=== PATIENT | female | born 1990 | race Caucasian/White ===

== ENCOUNTER 2016-07-10 14:30 | Emergency (ER) | payer OTHER ==
[~2016-07-10] VITALS: Wt 63.0 kg
--- NOTE | 2016-07-10 15:53 | RADRPT ---
PROCEDURE: XR Chest 1 View. CLINICAL INDICATION: Cough TECHNIQUE: AP view of the chest were obtained. COMPARISON: None. FINDINGS: The cardiomediastinal silhouette is within normal limits. The lungs are hyperexpanded. Scattered at electasis is noted in the bilateral lower lobes. No consolidations are identified. No pneumothorax is seen. Osseous structures are intact. IMPRESSION: Hyperexpanded lungs. Scattered atelectasis in the bilateral lower lobes. RPTAT: AA .Enrique Dinero MD, Date Time Electronically viewed and signed by .Enrique Dinero MD, on 07/10/2016 15:53 .P/
[2016-07-10] MEDS ORDERED: IBUPROFEN 800 MG TAB PO ONE (16:00)
[2016-07-10 16:02] VITALS: BP 123/57; PULSE 90; RESP 20; TEMP 98.7
[2016-07-10] MEDS ORDERED: BENZ100C70 PO (16:06)
[2016-07-10] MEDS ORDERED: D-ME473S18 PO (16:06)
--- NOTE | 2016-07-10 17:18 | ERD ---
DATE OF SERVICE: HISTORY OF PRESENT ILLNESS: The patient is a 26-year-old female complaining of cough and congestion that started last night. She states that she has some deep chest pain. She has a runny nose and h as had a sore throat. No fever, no body aches. She states she does have some pleuritic pain with d eep breaths. She has had no recent travel, no recent surgeries. She does not smoke. She has no OC P use and has no history of clotting disorders or cancer. PAST MEDICAL HISTORY: Denies medical problems. ALLERGIES: PENICILLINS. SOCIAL HISTORY: Denies. REVIEW OF SYSTEMS: A 12-point review of systems was done. Refer to HPI for positives, all other sy stems negative. PHYSICAL EXAMINATION VITAL SIGNS: Temperature is 99.9, pulse 102, blood pressure is 119/84, respiratory rate 22, O2 sat 97% on room air. Pain intensity 9/10. GENERAL: The patient is well-appearing, well-nourished, no acute distress. HEART: Regular rate and rhythm. No murmurs, clicks, rubs, or gallops. No S3 or S4. CHEST: Clear to auscultation bilaterally. There are no rales, wheezes, or rhonchi. HEENT: Atraumatic. Conjunctivae are pink. Pupils equal, round, and reactive to light. There is n o scleral icterus. Tympanic membranes clear bilaterally. Oropharynx clear. No nystagmus or photop hobia. ABDOMEN: Soft, nontender and nondistended. Good bowel sounds. No rebound or guarding. No gross p eritonitis. No gross organomegaly or masses. No Tang sign or McBurney point tenderness. SKIN: There is no apparent rash or petechiae. The skin is warm and dry. EMERGENCY ROOM COURSE: The patient had an EKG done in the ER. The patient's EKG showed a ventricul ar rate of 119, sinus tachycardia with no ST elevations, no T-wave inversions, no QT prolongations, normal axis. The patient also had a 1-view chest x-ray done in the ER, which showed hyperexpanded l ungs with scattered atelectasis in the bilateral lower lobes. The patient received ibuprofen in the ER. Upon discharge, the patient's vitals were reassessed. Her temperature was 98.7, pulse rate 90 , blood pressure is 123/57, respiratory rate 20, O2 saturation 97% on room air. Pain intensity 2/10 . DIAGNOSES: 1. Chest pain, atypical. 2. Cough. 3. Upper respiratory infection. MEDICAL DECISION MAKING: The patient's symptoms may be viral in nature. I have considered possibil ity of PE; however, patient has no risk factors and tachycardia resolved after ibuprofen was given a nd pain improved. The patient likely has URI with associated pleuritic chest pain. I did not feel that there is indication for blood work or further imaging at this time. I have low suspicion for c ardiac abnormality. I have low suspicion for bacterial HEENT infection, meningitis, or sepsis. The patient's symptoms are likely viral and explained this to the patient. I offered a flu swab and a Monospot test in the ER; however, patient felt that she did not want to proceed with testing, as the re was little to do for treatment. DISCHARGE: The patient is discharged stable. The patient is given a prescription for promethazine DM and Tessalon. Told to follow up with primary care within 1 to 2 days for reevaluation. The misa ent was told if symptoms progress or worsen to return to the ER. All other questions answered at ti me of discharge. Discharge summary given at the time of departure. The patient understood and comp lied with plan. Dictated By: BHAVYA REGALADO for ISAURO JARAMILLO/NTS Conf#: [id number] DID#: [id number]
== END 2016-07-10 16:19 | disposition home or self-care (01) ==
LOC: FTE 14:30 → EEVIPCON 14:30 → FTE 16:19
DX: R07.89 Other chest pain (principal); J06.9 Acute upper respiratory infection, unspecified
CPT/HCPCS: 71010; 93005

== ENCOUNTER 2016-08-28 05:17 | Emergency (ER) | payer OTHER ==
[~2016-08-28] VITALS: Ht 149.9 cm; Wt 28.9 kg
[~2016-08-28 05:17] MED LIST: BENZ100C70 PO; D-ME473S18 PO
[2016-08-28 05:18] VITALS: Ht 149.9 cm; Wt 28.9 kg
[2016-08-28] MEDS ORDERED: IBUP-1542 PO (05:33)
[2016-08-28] MEDS ORDERED: CYCL-319 PO (05:33)
--- NOTE | 2016-08-28 05:39 | ERD ---
ER Documentation Chief Complaint Date/Time DATE: 08/28/16 TIME: 05:38 Chief Complaint lower back pain x 2 hrs HPI 26-year-old female presents with lower back pain. 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 She did not fall. There is no bowel or bladder incontinence. No saddle anesthesia. No pain medications have been taking. No urinary symptoms. No fever. ROS All systems reviewed and are negative except as per history of present illness. Medications Home Meds Active Scripts Ibuprofen* (Motrin*) 600 Mg Tab, 600 MG PO Q6H Y for PAIN AND OR ELEVATED TEMP, #30 TAB Prov:MARTY FOURNIER PA-C 08/28/16 Cyclobenzaprine Hcl* (Cyclobenzaprine Hcl*) 10 Mg Tablet, 10 MG PO QHS, #15 TAB Prov:MARTY FOURNIER PA-C 08/28/16 Dextromethorphan Hb-Promethazine Hcl (Promethazine DM Syrup) 473 Ml Syrup, 5 ML PO Q6H Y for COUGH, #4 OZ Prov:DRE NEGRON PA-C 07/10/16 Benzonatate* (Tessalon Perle*) 100 Mg Capsule, 100 MG PO TID, #30 CAP Prov:DRE NEGRON PA-C 07/10/16 Allergies Allergies: Coded Allergies: Penicillins (Verified Allergy, Unknown, 08/28/16) PMhx/Soc Medical and Surgical Hx: pt denies Medical Hx, pt denies Surgical Hx Hx Alcohol Use: No Hx Substance Use: No Hx Tobacco Use: No Smoking Status: Never smoker FmHx Family History: No diabetes Physical Exam Vitals Vital Signs Date Time Temp Pulse Resp B/P Pulse Ox O2 Delivery O2 Flow Rate FiO2 08/28/16 05:18 97.0 91 17 115/71 99 Physical Exam General: well developed, well nourished, alert, nontoxic, no distress Head: normocephalic, atraumatic Neck: Supple, nontender, no lymphadenopathy, no midline tenderness Respiratory: Clear to auscaultation bilaterally, speaks in full sentences, no use of accesory muscles or labored breathing, no rales, ronchi, or wheezing Cardiovascular: RRR, No murmurs GI: soft, non tender, non distended, negative murphys sign, negative mcburneys point tenderness, no cva tenderness bilaterally, no rebound or guarding Back: no midline tenderness, no step offs or bony abnormalities, sensation to light touch in tact Extremities: moving all extremities normally, normal gait, no edema Procedures/MDM Patient presents with back pain. There is no trauma. She has no midline tenderness. He has no bowel or bladder incontinence or saddle anesthesia. She has no urinary symptoms. She is afebrile well-appearing in no distress. I offered her Toradol but she declined and she was discharged with ibuprofen and Flexeril. Recommended this patient follow up with her primary care doctor within 48 hours or return to the emergency room for any worsening of symptoms. However this time I do believe there is suitable for outpatient management. I answered all their questions and they agreed with the plan and were discharged home. Departure Diagnosis: Primary Impression: Back pain Condition: Stable Patient Instructions: Back Pain (Acute Or Chronic) Additional Instructions: Call your primary care doctor TOMORROW for an appointment during the next 1-2 days.See the doctor sooner or return here if your condition worsens before your appointment time. MARTY FOURNIER PA-C Aug 28, 2016 05:39
== END 2016-08-28 05:40 | disposition home or self-care (01) ==
LOC: FTE 05:17
DX: M54.5 Low back pain (principal)
CPT/HCPCS: 99283

== ENCOUNTER 2016-11-27 18:50 | Emergency (ER) | payer OTHER ==
[~2016-11-27] VITALS: Ht 149.9 cm; Wt 70.0 kg
[2016-11-27 18:50] VITALS: Ht 149.9 cm; Wt 70.0 kg
[~2016-11-27 18:50] MED LIST changes: +CYCL-319 PO; +IBUP-1542 PO
[2016-11-27] MEDS ORDERED: MECLIZINE 12.5 MG TAB PO ONE (19:30)
[2016-11-27] MEDS ORDERED: MECL12.574 PO (19:43)
--- NOTE | 2016-11-27 19:44 | ERD ---
ER Documentation Chief Complaint Date/Time DATE: 11/27/16 TIME: 19:44 Chief Complaint syncope after eating while sitting, hit knees on floor, no head injury HPI Patient is a 26-year-old female with no medical problems who presents after a syncopal event. The patient was working upstairs and a code green was called because she passed out. She felt dizzy prior to this happening. The patient said that she felt like things were going black prior to her passing out. She hit her knees on the floor but did not hit her head. She felt shaky afterwards. Her blood sugar was checked and was [address] She does not remember the name of her primary doctor. ROS All systems reviewed and are negative except as per history of present illness. Medications Home Meds Active Scripts Meclizine Hcl* (Antivert*) 12.5 Mg Tab, 25 MG PO Q6H Y for DIZZINESS, #20 TAB Prov:ZAYRA GARCIA MD 11/27/16 Ibuprofen* (Motrin*) 600 Mg Tab, 600 MG PO Q6H Y for PAIN AND OR ELEVATED TEMP, #30 TAB Prov:MRATY FOURNIER PA-C 08/28/16 Cyclobenzaprine Hcl* (Cyclobenzaprine Hcl*) 10 Mg Tablet, 10 MG PO QHS, #15 TAB Prov:MARTY FOURNIER PA-C 08/28/16 Dextromethorphan Hb-Promethazine Hcl (Promethazine DM Syrup) 473 Ml Syrup, 5 ML PO Q6H Y for COUGH, #4 OZ Prov:DRE NEGRON PA-C 07/10/16 Benzonatate* (Tessalon Perle*) 100 Mg Capsule, 100 MG PO TID, #30 CAP Prov:DRE NEGRON PA-C 07/10/16 Allergies Allergies: Coded Allergies: Penicillins (Verified Allergy, Unknown, 08/28/16) PMhx/Soc Medical and Surgical Hx: pt denies Medical Hx, pt denies Surgical Hx History of Surgery: No Anesthesia Reaction: No Hx Neurological Disorder: No Hx Respiratory Disorders: No Hx Cardiac Disorders: No Hx Psychiatric Problems: No Hx Miscellaneous Medical Probl: No Hx Alcohol Use: No Hx Substance Use: No Hx Tobacco Use: No Smoking Status: Never smoker FmHx Family History: No diabetes Physical Exam Vitals Vital Signs Date Time Temp Pulse Resp B/P Pulse Ox O2 Delivery O2 Flow Rate FiO2 11/27/16 18:50 98.8 96 18 143/87 100 Physical Exam Const: No acute distress Head: Atraumatic Eyes: Normal Conjunctiva ENT: Normal External Ears, Nose and Mouth. Neck: Full range of motion..~ No meningismus. Resp: Clear to auscultation bilaterally Cardio: Regular rate and rhythm, no murmurs Abd: Soft, non tender, non distended. Normal bowel sounds Skin: No petechiae or rashes Back: No midline or flank tenderness Ext: No cyanosis, or edema Neur: Awake and alert, cranial nerves II through XII intact, strength is 5 out of 5 in all 4 extremities Psych: Normal Mood and Affect Results 24 hrs Laboratory Tests Test 11/27/16 19:21 Bedside Glucose 148mg/dL Current Medications Medications (Trade) Dose Ordered Sig/Mono Route PRN Reason Start Time Stop Time Status Last Admin Dose Admin Meclizine HCl (Antivert) 25 mg ONCE ONCE PO 11/27/16 19:30 11/27/16 19:31 DC 11/27/16 19:37 Procedures/MDM EKG read by me: Rate/Rhythm: Regular rate and rhythm at a rate of 96 Intervals: Normal Impression: No evidence of ischemia or arrhythmia Accu-Chek is normal. test is negative. Patient is a 26-year-old female presents with dizziness and syncope. EKG was normal, Accu-Chek was normal, and test was negative. I doubt hypoglycemia. I doubt ectopic or . I doubt ischemia or significant arrhythmia such as ventricular fibrillation or ventricular tachycardia. The patient was given meclizine for her dizziness. I believe outpatient management is appropriate. I doubt stroke. She can follow-up with the primary doctor within 24-48 hours and could return if symptoms worsen. Departure Diagnosis: Primary Impression: Syncope Syncope type: unspecified Qualified Code: R55 - Syncope, unspecified syncope type Condition: Fair Patient Instructions: Syncope, Unk Cause Referrals: Your doctor Additional Instructions: Call your primary care doctor TOMORROW for an appointment during the next 1-2 days.See the doctor sooner or return here if your condition worsens before your appointment time. ZAYRA GARCIA MD Nov 27, 2016 19:44
[2016-11-27 20:13] VITALS: BP 100/62; PULSE 85; RESP 17; TEMP 98.9
== END 2016-11-27 20:14 | disposition home or self-care (01) ==
LOC: E/R 18:50
DX: R55 Syncope and collapse (principal)
CPT/HCPCS: 82962; 93005

== ENCOUNTER 2016-12-18 01:35 | Emergency (ER) | payer SELFPAY ==
[~2016-12-18] VITALS: Ht 149.9 cm; Wt 63.6 kg
[~2016-12-18 01:35] MED LIST changes: +MECL12.574 PO
[2016-12-18 01:39] VITALS: Ht 149.9 cm; Wt 63.6 kg
[2016-12-18] MEDS ORDERED: IBUPROFEN 600 MG TAB PO ONE (02:00)
[2016-12-18] MEDS ORDERED: ARIP5TAB7 PO (02:23)
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
[2016-12-18] MEDS ORDERED: ONDANSETRON (ODT) 4 MG TAB ODT STA (03:10)
--- NOTE | 2016-12-18 03:26 | RADRPT ---
PROCEDURE: XR Chest. CLINICAL INDICATION: Chest pain status post trauma TECHNIQUE: PA and Lateral views of the chest were obtained. COMPARISON: 07/10/2016 FINDINGS: The heart is normal in size. The lungs are clear without evidence of infiltrate. There is no pleural effusion. No pneumothorax is identified. The osseous structures are intact. IMPRESSION: No evidence for acute cardiopulmonary disease. RPTAT: HIKT .Christopher Naranjo MD, MD Date Time Electronically viewed and signed by .Christopher Naranjo MD, on 12/18/2016 03:26 .T/
[2016-12-18] MEDS ORDERED: TRAM50TA2 PO (03:32)
[2016-12-18] MEDS ORDERED: ONDA4TAB14 PO (03:32)
[2016-12-18] MEDS ORDERED: IBUP-1542 PO (03:32)
[2016-12-18 03:56] VITALS: BP 121/76; PULSE 83; RESP 16
== END 2016-12-18 03:58 | disposition home or self-care (01) ==
LOC: FTE 01:35
DX: S20.219A Contusion of unspecified front wall of thorax, initial encounter (principal); W50.1XXA Accidental kick by another person, initial encounter; Y92.89 Other specified places as the place of occurrence of the external cause
CPT/HCPCS: 71020

== ENCOUNTER 2017-03-04 11:37 | Emergency (ER) | payer OTHER ==
[~2017-03-04] VITALS: Ht 149.9 cm; Wt 71.0 kg
[~2017-03-04 11:37] MED LIST changes: +ARIP5TAB7 PO; +ONDA4TAB14 PO; +TRAM50TA2 PO
[2017-03-04 11:40] VITALS: Ht 149.9 cm; Wt 71.0 kg
[2017-03-04] MEDS ORDERED: ONDANSETRON 4 MG INJ IV STA (13:12)
[2017-03-04] MEDS ORDERED: SOD CHLORIDE 0.9% 1,000 ML IV STA (13:12)
[2017-03-04 13:53] LABS: BASOPHILS % 0.1 % (0.0-2.0); EOSINOPHILS % 0.4 % (0.0-7.0); HEMATOCRIT 41.4 % (37.0-47.0); HEMOGLOBIN 13.8 g/dl (12.0-16.0); LYMPHOCYTES # 0.8 10^3/ul (0.8-2.9); LYMPHOCYTES % 8.6 % (15.0-51.0); MEAN CORPUSCULAR HEMOGLOBIN 27.7 pg (29.0-33.0); MEAN CORPUSCULAR HGB CONC 33.3 g/dl (32.0-37.0); MEAN PLATELET VOLUME 10.1 fl (7.4-10.4); MONOCYTE # 0.5 10^3/ul (0.3-0.9); MONOCYTES % 5.4 % (0.0-11.0); NEUTROPHIL # 8.3 10^3/ul (1.6-7.5); NEUTROPHILS % 85.2 % (39.0-77.0); PLATELET COUNT 328 10^3/UL (140-415); RED BLOOD COUNT 4.99 10^6/ul (4.20-5.40); RED CELL DISTRIBUTION WIDTH 12.5 % (11.5-14.5); WHITE BLOOD COUNT 9.8 10^3/ul (4.8-10.8)
[2017-03-04 14:05] LABS: ADD UMIC YES; UR ASCORBIC ACID NEGATIVE (NEGATIVE); UR BACTERIA FEW /HPF (NONE SEEN); UR BILIRUBIN (Dip) NEGATIVE (NEGATIVE); UR BLOOD (Dip) 1+ mg/dL (NEGATIVE); UR CLARITY SLIGHTLY CLOUDY (CLEAR); UR COLOR YELLOW (YELLOW); UR GLUCOSE (Dip) NEGATIVE (NEGATIVE); UR KETONES (Dip) TRACE mg/dL (NEGATIVE); UR LEUKOCYTE ESTERASE (Dip) TRACE Leu/ul (NEGATIVE); UR MUCUS MANY /HPF (NONE SEEN); UR NITRITE (Dip) NEGATIVE (NEGATIVE); UR RBC 5 /HPF (0-5); UR SPECIFIC GRAVITY (Dip) 1.027 (1.003-1.030); UR SQUAMOUS EPITHELIAL CELL FEW /HPF (FEW); UR TOTAL PROTEIN (Dip) 1+ mg/dl (NEGATIVE); UR UROBILINOGEN (Dip) 1+ mg/dL (NEGATIVE)
[2017-03-04 14:13] LABS: ALBUMIN 4.4 g/dl (3.3-4.9); ALBUMIN/GLOBULIN RATIO 1.41; BILIRUBIN,INDIRECT 0.9 mg/dl (0-1.1); BILIRUBIN,TOTAL 0.9 mg/dl (0.2-1.3); CALCIUM 8.8 mg/dl (8.4-10.2); CREATININE 0.69 mg/dl (0.44-1.00); POTASSIUM 3.8 mmol/L (3.5-5.1); TOTAL PROTEIN 7.5 g/dl (6.1-8.1)
--- NOTE | 2017-03-04 14:21 | ERD ---
ER Documentation Chief Complaint Date/Time DATE: 03/04/17 TIME: 14:18 Chief Complaint GENERALIZED WEAKNESS , SYNCOPAL EPISODE , FELL IN SHOWER TODAY , NO TRAUMA HPI 26-year-old female presents to the emergency department complaining of generalized weakness since last night. Patient states that while she was in the shower today she felt lightheaded and lowered herself to the ground however she denies syncope or head injury. Patient denies any chest pain, abdominal pain, shortness of breath, fevers, urinary symptoms. Patient states that she just started Wellbutrin three days ago. ROS All systems reviewed and are negative except as per history of present illness. Medications Home Meds Active Scripts Ondansetron (Ondansetron Odt) 4 Mg Tab.rapdis, 4 MG PO Q8 Y for NAUSEA AND/OR VOMITING, #30 TAB Prov:EUGENE IBRAHIM NP 12/18/16 Tramadol HCl (Tramadol HCl) 50 Mg Tablet, 50 MG PO Q6 Y for SEVERE PAIN LEVEL 7- 10, #20 TAB Prov:EUGENE IBRAHIM NP 12/18/16 Ibuprofen* (Motrin*) 600 Mg Tab, 600 MG PO Q6H Y for PAIN AND OR ELEVATED TEMP, #30 TAB Prov:EUGENE IBRAHIM NP 12/18/16 Meclizine Hcl* (Antivert*) 12.5 Mg Tab, 25 MG PO Q6H Y for DIZZINESS, #20 TAB Prov:ZAYRA GARCIA MD 11/27/16 Ibuprofen* (Motrin*) 600 Mg Tab, 600 MG PO Q6H Y for PAIN AND OR ELEVATED TEMP, #30 TAB Prov:MARTY FOURNIER PA-C 08/28/16 Cyclobenzaprine Hcl* (Cyclobenzaprine Hcl*) 10 Mg Tablet, 10 MG PO QHS, #15 TAB Prov:MARTY FOURNIER PA-C 08/28/16 Dextromethorphan Hb-Promethazine Hcl (Promethazine DM Syrup) 473 Ml Syrup, 5 ML PO Q6H Y for COUGH, #4 OZ Prov:DRE NEGRON PA-C 07/10/16 Benzonatate* (Tessalon Perle*) 100 Mg Capsule, 100 MG PO TID, #30 CAP Prov:DRE NEGRON PA-C 07/10/16 Reported Medications Aripiprazole* (Abilify*) Unknown Strength Tab, PO DAILY, #30 TAB 12/18/16 Allergies Allergies: Coded Allergies: Penicillins (Verified Allergy, Unknown, 08/28/16) PMhx/Soc History of Surgery: Yes (wisdom teeth) Anesthesia Reaction: No Hx Neurological Disorder: No Hx Respiratory Disorders: No Hx Cardiac Disorders: No Hx Psychiatric Problems: Yes (depression) Hx Miscellaneous Medical Probl: No Hx Alcohol Use: No Hx Substance Use: No Hx Tobacco Use: No Smoking Status: Never smoker Physical Exam Vitals Vital Signs Date Time Temp Pulse Resp B/P Pulse Ox O2 Delivery O2 Flow Rate FiO2 03/04/17 11:40 98.4 105 18 130/76 97 Physical Exam Const: Well-appearing, WDWN no acute distress Head: Atraumatic Eyes: Normal Conjunctiva ENT: Normal External Ears, Nose and Mouth. Neck: Full range of motion..~ No meningismus. Resp: Clear to auscultation bilaterally Cardio: Regular rate and rhythm, no murmurs Abd: Soft, non tender, non distended. Normal bowel sounds Skin: No petechiae or rashes Back: No midline or flank tenderness Ext: No cyanosis, or edema Neur: Awake and alert Psych: Normal Mood and Affect Result Diagram: 03/04/17 1300 03/04/17 1300 Results 24 hrs Laboratory Tests Test 03/04/17 13:00 White Blood Count 9.810^3/ul Red Blood Count 4.9910^6/ul Hemoglobin 13.8g/dl Hematocrit 41.4% Mean Corpuscular Volume 83.0fl Mean Corpuscular Hemoglobin 27.7pg Mean Corpuscular Hemoglobin Concent 33.3g/dl Red Cell Distribution Width 12.5% Platelet Count 37313^3/UL Mean Platelet Volume 10.1fl Neutrophils % 85.2% Lymphocytes % 8.6% Monocytes % 5.4% Eosinophils % 0.4% Basophils % 0.1% Nucleated Red Blood Cells % 0.0/100WBC Neutrophils # 8.310^3/ul Lymphocytes # 0.810^3/ul Monocytes # 0.510^3/ul Eosinophils # 0.010^3/ul Basophils # 0.010^3/ul Nucleated Red Blood Cells # 0.010^3/ul Urine Color YELLOW Urine Clarity SLIGHTLY CLOUDY Urine pH 5.0 Urine Specific [place] 1.027 Urine Ketones TRACEmg/dL Urine Nitrite NEGATIVEmg/dL Urine Bilirubin NEGATIVEmg/dL Urine Urobilinogen 1+mg/dL Urine Leukocyte Esterase TRACELeu/ul Urine Microscopic RBC 5/HPF Urine Microscopic WBC 3/HPF Urine Squamous Epithelial Cells FEW/HPF Urine Bacteria FEW/HPF Urine Mucus MANY/HPF Urine Hemoglobin 1+mg/dL Urine Glucose NEGATIVEmg/dL Urine Total Protein 1+mg/dl Sodium Level 140mmol/L Potassium Level 3.8mmol/L Chloride Level 105mmol/L Carbon Dioxide Level 24mmol/L Anion Gap 15 Blood Urea Nitrogen 14mg/dl Creatinine 0.69mg/dl Glucose Level 87mg/dl Calcium Level 8.8mg/dl Total Bilirubin 0.9mg/dl Direct Bilirubin 0.00mg/dl Indirect Bilirubin 0.9mg/dl Aspartate Amino Transf (AST/SGOT) 17IU/L Alanine Aminotransferase (ALT/SGPT) 32IU/L Alkaline Phosphatase 49IU/L Total Protein 7.5g/dl Albumin 4.4g/dl Globulin 3.10g/dl Albumin/Globulin Ratio 1.41 Lipase 60U/L Current Medications Medications (Trade) Dose Ordered Sig/Mono Route PRN Reason Start Time Stop Time Status Last Admin Dose Admin Sodium Chloride (NS) 1,000 ml @ 1,000 mls/hr Q1H STAT IV 03/04/17 13:12 03/04/17 14:11 DC 03/04/17 13:44 Ondansetron HCl (Zofran Inj) 4 mg ONCE STAT IV 03/04/17 13:12 03/04/17 13:15 DC 03/04/17 13:44 Procedures/MDM This is a 26-year-old female presenting to the emergency department complaining of generalized weakness since last night and a near syncopal episode that occurred while she was in the shower, likely vasovagal. Lab work was drawn. CBC did not show any evidence of leukocytosis or anemia. CMP did not show any evidence of renal, liver, or electrolyte abnormalities. Lipase was normal. UA did not show any evidence of hemoglobin or urinary tract infection. He was given 1 L of fluids and Zofran. EKG did not show any evidence of STEMI. Patient is well-appearing and stable to be discharged home to follow-up with her primary care physician. Discussed return to the ER for any worsening signs or symptoms. She understands and agrees with this plan Departure Diagnosis: Primary Impression: Lightheaded Condition: Stable Patient Instructions: Generalized Weakness, Near Syncope, Vasovagal, Weakness, Unk Cause Additional Instructions: FOLLOW UP WITH YOUR PRIMARY CARE PHYSICIAN TOMORROW.Return to this facility if you are not improving as expected. DAVDI TAYLOR PA-C Mar 04, 2017 14:21
== END 2017-03-04 15:34 | disposition left against medical advice (07) ==
LOC: FTE 11:37
DX: R42 Dizziness and giddiness (principal)
CPT/HCPCS: 36415; 80053; 81001; 83690; 85025; 93005; 96374; 99284; J2405; J7030

== ENCOUNTER 2017-03-26 03:11 | Emergency (ER) | payer OTHER ==
[~2017-03-26] VITALS: Ht 149.9 cm; Wt 73.0 kg
[2017-03-26 03:14] VITALS: Ht 149.9 cm; Wt 73.0 kg
[2017-03-26] MEDS ORDERED: CYCL-319 PO (04:19)
[2017-03-26] MEDS ORDERED: NAPR-260 PO (04:19)
--- NOTE | 2017-03-28 21:08 | ERD ---
ER Documentation Chief Complaint Chief Complaint states low back pain while turning a patient around 8 pm HPI This is a 26-year-old female presenting to the emergency department complaining of bilateral lower back pain status post lifting a heavy patient around 8 PM today. She denies any saddle anesthesia, bladder or bowel incontinence. She denies taking any medications ROS All systems reviewed and are negative except as per history of present illness. Medications Home Meds Active Scripts Cyclobenzaprine Hcl* (Cyclobenzaprine Hcl*) 10 Mg Tablet, 10 MG PO TID, #30 TAB Prov:DAVID TAYLOR PA-C 03/26/17 Naproxen* (Naprosyn*) 500 Mg Tablet, 500 MG PO BID Y for PAIN AND/OR INFLAMMATION, #30 TAB Prov:DAVID TAYLOR PA-C 03/26/17 Ondansetron (Ondansetron Odt) 4 Mg Tab.rapdis, 4 MG PO Q8 Y for NAUSEA AND/OR VOMITING, #30 TAB Prov:EUGENE IBRAHIM NP 12/18/16 Tramadol HCl (Tramadol HCl) 50 Mg Tablet, 50 MG PO Q6 Y for SEVERE PAIN LEVEL 7- 10, #20 TAB Prov:EUGENE IBRAHIM NP 12/18/16 Ibuprofen* (Motrin*) 600 Mg Tab, 600 MG PO Q6H Y for PAIN AND OR ELEVATED TEMP, #30 TAB Prov:EUGENE IBRAHIM NP 12/18/16 Meclizine Hcl* (Antivert*) 12.5 Mg Tab, 25 MG PO Q6H Y for DIZZINESS, #20 TAB Prov:ZAYRA GARCIA MD 11/27/16 Ibuprofen* (Motrin*) 600 Mg Tab, 600 MG PO Q6H Y for PAIN AND OR ELEVATED TEMP, #30 TAB Prov:MARTY FOURNIER PA-C 08/28/16 Cyclobenzaprine Hcl* (Cyclobenzaprine Hcl*) 10 Mg Tablet, 10 MG PO QHS, #15 TAB Prov:MARTY FOURNIER PA-C 08/28/16 Dextromethorphan Hb-Promethazine Hcl (Promethazine DM Syrup) 473 Ml Syrup, 5 ML PO Q6H Y for COUGH, #4 OZ Prov:DRE NEGRONC 07/10/16 Benzonatate* (Tessalon Perle*) 100 Mg Capsule, 100 MG PO TID, #30 CAP Prov:DRE NEGRON PA-C 07/10/16 Reported Medications Aripiprazole* (Abilify*) Unknown Strength Tab, PO DAILY, #30 TAB 12/18/16 Allergies Allergies: Coded Allergies: Penicillins (Verified Allergy, Unknown, 03/26/17) PMhx/Soc History of Surgery: Yes (wisdom teeth) Anesthesia Reaction: No Hx Neurological Disorder: No Hx Respiratory Disorders: No Hx Cardiac Disorders: No Hx Psychiatric Problems: Yes (depression) Hx Miscellaneous Medical Probl: No Hx Alcohol Use: No Hx Substance Use: No Hx Tobacco Use: No Smoking Status: Never smoker Physical Exam Vitals Vital Signs Date Time Temp Pulse Resp B/P Pulse Ox O2 Delivery O2 Flow Rate FiO2 03/26/17 03:14 97.5 84 20 121/73 98 Physical Exam Const: WDWN Head: Atraumatic Eyes: Normal Conjunctiva ENT: Normal External Ears, Nose and Mouth. Neck: Full range of motion..~ No meningismus. Resp: Clear to auscultation bilaterally Cardio: Regular rate and rhythm, no murmurs Abd: Soft, non tender, non distended. Normal bowel sounds Skin: No petechiae or rashes Back: No midline or flank tenderness tenderness to palpation on the lumbar paraspinal muscles bilaterally, full range of motion Ext: No cyanosis, or edema Neur: Awake and alert Psych: Normal Mood and Affect Procedures/MDM Is a 26-year-old female presenting to the emergency department with signs and symptoms consistent with a lumbar strain. No evidence of cauda equina or vertebral fracture. Patient is neurovascular intact and stable to be discharged home with prescription for ibuprofen and Flexeril. Discussed the follow-up with PCP. Discussed return to the ER for any worsening symptoms patient understands the plan Departure Diagnosis: Primary Impression: Back pain Condition: Stable Patient Instructions: Back Pain (Acute Or Chronic) Additional Instructions: FOLLOW UP WITH YOUR PRIMARY CARE PHYSICIAN TOMORROW.Return to this facility if you are not improving as expected. Take all medicines as directed. Return to this facility if you are not improving as expected. DAVID TAYLOR PA-C Mar 28, 2017 21:08
== END 2017-03-26 04:44 | disposition home or self-care (01) ==
LOC: FTE 03:11
DX: M54.5 Low back pain (principal)
CPT/HCPCS: 99283

== ENCOUNTER 2017-07-08 23:31 | Emergency (ER) | END 2017-07-09 01:57 | disposition home or self-care (01) ==

== ENCOUNTER 2017-11-26 23:16 | Emergency (ER) | END 2017-11-27 01:33 | disposition home or self-care (01) ==

== ENCOUNTER 2018-01-06 14:04 | Emergency (ER) | END 2018-01-06 16:55 | disposition home or self-care (01) ==

== ENCOUNTER 2018-02-17 18:58 | Emergency (ER) | END 2018-02-17 19:40 | disposition home or self-care (01) ==

== ENCOUNTER 2018-04-05 17:30 | Emergency (ER) | END 2018-04-05 18:34 | disposition home or self-care (01) ==

== ENCOUNTER 2018-05-19 22:45 | Emergency (ER) | payer OTHER ==
[~2018-05-19] VITALS: Ht 149.9 cm; Wt 72.4 kg
[~2018-05-19 22:45] MED LIST changes: +ACET1TAB40 PO; +ARIP5TAB14 PO; -ARIP5TAB7 PO; +BENZ-6 PO; -BENZ100C70 PO; -CYCL-319 PO; +CYCL10TA7 PO; +NAPR-985 PO; +NITR-58 PO; +PHEN-537 PO
[2018-05-19 22:49] VITALS: BP 141/92; PULSE 80; RESP 18; Ht 149.9 cm; Wt 72.4 kg
[2018-05-19] MEDS ORDERED: BEN25 PO (23:15)
--- NOTE | 2018-05-19 23:22 | ERD ---
ER Documentation Chief Complaint Chief Complaint ate cup cake with red coloring about 30 min ago, feels throat closing. HPI 28-year-old female presenting with throat irritation after eating red food coloring. Patient states she has had allergic reaction in the past. She has not taken any medication since this started. She denies any shortness of breath but feels scratchiness and tightness in her throat. Denies any tongue swelling or lip swelling. Denies other medical problems. KDA. Surgical history denies. Social history denies ROS All systems reviewed and are negative except as per history of present illness. Medications Home Meds Active Scripts Diphenhydramine Hcl* (Benadryl*) 25 Mg Cap, 25 MG PO Q6, #30 CAP Prov:DRE NEGRON PA-C 05/19/18 Acetaminophen with Codeine (Acetaminophen-Cod #3 Tablet) 1 Each Tablet, 1 TAB PO Q6H PRN for PAIN, #10 TAB Prov:VANI RAM MD 04/05/18 Ibuprofen* (Motrin*) 600 Mg Tab, 600 MG PO Q6, #20 TAB Prov:VANI RAM MD 04/05/18 Ondansetron (Ondansetron Odt) 4 Mg Tab.rapdis, 4 MG PO Q6H PRN for NAUSEA AND/OR VOMITING, #20 TAB Prov:VANESSA NOGUEIRA PA-C 02/17/18 Phenazopyridine Hcl* (Pyridium*) 100 Mg Tab, 100 MG PO TID PRN for URINARY PAIN, #8 TAB Prov:BRIAN TINOCO PA-C 01/06/18 Nitrofurantoin Monohyd Macrocr* (Macrobid*) 100 Mg Capsr, 100 MG PO HS for 7 Days, CAP Prov:BRIAN TINOCO PA-C 01/06/18 Ibuprofen* (Motrin*) 600 Mg Tab, 600 MG PO Q6, #30 TAB Prov:NIK CAMPUZANO 11/27/17 Nitrofurantoin Monohyd Macrocr* (Macrobid*) 100 Mg Capsr, 100 MG PO BID for 7 Days, CAP Prov:NIK CAMPUZANO 11/27/17 Tramadol HCl (Tramadol HCl) 50 Mg Tablet, 50 MG PO Q4 PRN for PAIN, #20 TAB Prov:VANESSA MONK 07/09/17 Cyclobenzaprine Hcl* (Cyclobenzaprine Hcl*) 10 Mg Tablet, 10 MG PO TID, #30 TAB Prov:DAVID TAYLOR PA-C 03/26/17 Naproxen* (Naprosyn*) 500 Mg Tablet, 500 MG PO BID PRN for PAIN AND/OR INFLAMMATION, #30 TAB Prov:DAVID TAYLOR PA-C 03/26/17 Ondansetron (Ondansetron Odt) 4 Mg Tab.rapdis, 4 MG PO Q8 PRN for NAUSEA AND/OR VOMITING, #30 TAB Prov:EUGENE IBRAHIM NP 12/18/16 Tramadol HCl (Tramadol HCl) 50 Mg Tablet, 50 MG PO Q6 PRN for SEVERE PAIN LEVEL 7-10, #20 TAB Prov:EUGENE IBRAHIM NP 12/18/16 Ibuprofen* (Motrin*) 600 Mg Tab, 600 MG PO Q6H PRN for PAIN AND OR ELEVATED TEMP, #30 TAB Prov:EUGENE IBRAHIM NP 12/18/16 Meclizine Hcl* (Antivert*) 12.5 Mg Tab, 25 MG PO Q6H PRN for DIZZINESS, #20 TAB Prov:ZAYRA GARCAI MD 11/27/16 Ibuprofen* (Motrin*) 600 Mg Tab, 600 MG PO Q6H PRN for PAIN AND OR ELEVATED TEMP, #30 TAB Prov:MARTY FOURNIER PA-C 08/28/16 Cyclobenzaprine Hcl* (Cyclobenzaprine Hcl*) 10 Mg Tablet, 10 MG PO QHS, #15 TAB Prov:MARTY FOURNIER PA-C 08/28/16 Dextromethorphan Hb-Promethazine Hcl (Promethazine DM Syrup) 473 Ml Syrup, 5 ML PO Q6H PRN for COUGH, #4 OZ Prov:DRE NEGRON PA-C 07/10/16 Benzonatate* (Tessalon Perle*) 100 Mg Capsule, 100 MG PO TID, #30 CAP Prov:DRE NEGRON PA-C 07/10/16 Reported Medications Aripiprazole* (Abilify*) Unknown Strength Tab, PO DAILY, #30 TAB 12/18/16 Allergies Allergies: Coded Allergies: Penicillins (Verified Allergy, Unknown, 02/17/18) red dye (Verified Allergy, Unknown, 05/19/18) PMhx/Soc History of Surgery: Yes ([place] Teeth Extraction) Anesthesia Reaction: No Hx Neurological Disorder: No Hx Respiratory Disorders: No Hx Cardiac Disorders: No Hx Psychiatric Problems: No Hx Miscellaneous Medical Probl: Yes (Ovarian Cyst) Hx Alcohol Use: No Hx Substance Use: No Hx Tobacco Use: Yes Smoking Status: Former smoker FmHx Family History: No diabetes, No coronary disease, No other Physical Exam Vitals Vital Signs Date Temp Pulse Resp B/P (MAP) Pulse Ox O2 O2 Flow FiO2 Time Delivery Rate 05/19/18 97.7 80 18 141/92 98 22:49 (108) Physical Exam GENERAL: The patient is well-appearing, well-nourished, in no acute distress HEENT: Atraumatic. Conjunctivae are pink. Pupils equal, round, and reactive to light. There is no scleral icterus. Tympanic membranes clear bilaterally. Oropharynx clear. No nystagmus or photophobia. NECK: C-spine is soft and supple. There is no meningismus. There is no cervical lymphadenopathy. CHEST: Clear to auscultation bilaterally. There are no rales, wheezes or rhonchi. HEART: Regular rate and rhythm. No murmurs, clicks, rubs or gallops. No S3 or S4. Results 24 hrs Current Medications Medications Dose Sig/Mono Start Time Status Last (Trade) Ordered Route PRN Stop Time Admin Dose Reason Admin 10 mg ONCE ONCE 05/19/18 Dexamethasone IM 23:30 (Decadron) 05/19/18 23:31 Loratadine 10 mg ONCE ONCE 05/19/18 (Claritin) PO 23:30 05/19/18 23:31 Procedures/MDM ER course: Decadron and Claritin given ED. MDM: 28-year-old female presenting with allergic reaction. I have low suspicion for anaphylaxis. Patient has not given Benadryl she is requesting to go back to work. I have low suspicion for airway compromise. Patient's vitals are stable and exam is non-concerning. Patient is discharged stricter precautions and told to follow-up with primary care. All questions answered at discharge Departure Diagnosis: Primary Impression: Allergic reaction Condition: Stable Patient Instructions: Allergic Reaction, Other (General) Referrals: [facility] YOU HAVE RECEIVED A MEDICAL SCREENING EXAM AND THE RESULTS INDICATE THAT YOU DO NOT HAVE A CONDITION THAT REQUIRES URGENT TREATMENT IN THE EMERGENCY DEPARTMENT. FURTHER EVALUATION AND TREATMENT OF YOUR CONDITION CAN WAIT UNTIL YOU ARE SEEN IN YOUR DOCTORS OFFICE WITHIN THE NEXT 1-2 DAYS. IT IS YOUR RESPONSIBILITY TO MAKE AN APPOINTMENT FOR FOLOW-UP CARE. IF YOU HAVE A PRIMARY DOCTOR --you should call your primary doctor and schedule an appointment IF YOU DO NOT HAVE A PRIMARY DOCTOR YOU CAN CALL OUR PHYSICIAN REFERRAL HOTLINE AT IF YOU CAN NOT AFFORD TO SEE A PHYSICIAN YOU CAN CHOSE FROM THE FOLLOWING [facility] [address] [facility] [address] [facility] [address] [facility] [address] [facility] [address] [facility]. [facility] [address] Additional Instructions: FOLLOW UP WITH YOUR PRIMARY CARE PHYSICIAN TOMORROW.Return to this facility if you are not improving as expected. DRE NEGRON PA-C May 19, 2018 23:22
[2018-05-19] MEDS ORDERED: DEXAMETHASONE 10 MG/ML 1 ML INJ IM ONE (23:30)
[2018-05-19] MEDS ORDERED: LORATADINE 10 MG TAB PO ONE (23:30)
== END 2018-05-19 23:30 | disposition home or self-care (01) ==
LOC: FTE 22:45
DX: R07.0 Pain in throat (principal); Z87.891 Personal history of nicotine dependence
CPT/HCPCS: 96372; 99284; J1100

== ENCOUNTER 2018-07-16 23:17 | Emergency (ER) | payer OTHER ==
[~2018-07-16] VITALS: Wt 71.4 kg
[~2018-07-16 23:17] MED LIST changes: +BEN25 PO; +CEPH-443 PO
[2018-07-17] MEDS ORDERED: KETOROLAC 60 MG INJ IM STA (00:20)
[2018-07-17] MEDS ORDERED: OXYCODONE/ACETAMINOPHEN (5/325) TAB PO ONE (00:30)
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
[2018-07-17] MEDS ORDERED: IBUP-1542 PO (01:42)
[2018-07-17 02:11] VITALS: BP 142/78; PULSE 78; RESP 16
== END 2018-07-17 02:12 | disposition home or self-care (01) ==
LOC: FTE 23:17
DX: M54.2 Cervicalgia (principal)
CPT/HCPCS: 70360; 81025; 96372; 99284; J1885

== ENCOUNTER 2019-01-13 01:05 | Emergency (ER) | payer OTHER ==
[~2019-01-13] VITALS: Ht 152.4 cm; Wt 72.7 kg
[~2019-01-13 01:05] MED LIST changes: +IBUP800T48 PO
[2019-01-13 01:12] VITALS: BP 144/85; PULSE 97; RESP 18; Ht 152.4 cm; Wt 72.7 kg
[2019-01-13] MEDS ORDERED: KETOROLAC 30 MG INJ IM STA (01:27)
== END 2019-01-13 02:55 | disposition home or self-care (01) ==
LOC: FTE 01:05
DX: S63.502A Unspecified sprain of left wrist, initial encounter (principal); S50.12XA Contusion of left forearm, initial encounter; S60.222A Contusion of left hand, initial encounter; M79.642 Pain in left hand; W01.0XXA Fall on same level from slipping, tripping and stumbling without subsequent striking against object, initial encounter; Y92.89 Other specified places as the place of occurrence of the external cause
CPT/HCPCS: 29125; 73090; 73110; 73130; 81025; 93005; J1885; 96372